=== PATIENT | female | born 1950 | race Caucasian/White ===

== ENCOUNTER 2016-11-04 21:16 | Emergency (ER) | payer MEDICARE, OTHER ==
[~2016-11-04] VITALS: Ht 162.6 cm; Wt 66.0 kg
[~2016-11-04 21:16] MED LIST: ALBU8.5H3 INH; AZIT250T94 PO; CHOL100062 PO; FURO-109 PO; LACT10SO5 PO; PANT40TA3 PO; PRED20TA PO; PROP40TA4 PO; RANI300T PO; RIFA550T4 PO; SPIR100T31 PO; URSO300C21 PO
[2016-11-04 21:22] VITALS: Ht 162.6 cm; Wt 66.0 kg
[2016-11-04] MEDS ORDERED: SOD CHLORIDE 0.9% 1,000 ML IV STA (23:51)
[2016-11-05 00:39] LABS: ADD SCAN DIFF NO
[2016-11-05 00:44] LABS: ABNORMAL IP MESSAGE 1; BASOPHILS % 1.2 % (0.0-2.0); EOSINOPHILS # 0.1 10^3/ul (0.0-0.5); EOSINOPHILS % 2.4 % (0.0-7.0); HEMATOCRIT 35.4 % (37.0-47.0); HEMOGLOBIN 9.9 g/dl (12.0-16.0); LYMPHOCYTES # 1.4 10^3/ul (0.8-2.9); LYMPHOCYTES % 42.4 % (15.0-51.0); MEAN CORPUSCULAR HEMOGLOBIN 23.5 pg (29.0-33.0); MEAN CORPUSCULAR VOLUME 84.1 fl (82.0-101.0); MONOCYTE # 0.4 10^3/ul (0.3-0.9); MONOCYTES % 10.6 % (0.0-11.0); NEUTROPHIL # 1.4 10^3/ul (1.6-7.5); NEUTROPHILS % 43.4 % (39.0-77.0); RED BLOOD COUNT 4.21 10^6/ul (4.20-5.40); RED CELL DISTRIBUTION WIDTH 16.4 % (11.5-14.5); WHITE BLOOD COUNT 3.3 10^3/ul (4.8-10.8)
[2016-11-05 01:04] LABS: ALANINE AMINOTRANSFERASE 28 IU/L (13-69); ALBUMIN/GLOBULIN RATIO 0.95; ALKALINE PHOSPHATASE 332 IU/L (42-121); ANION GAP 11 (8-16); ASPARTATE AMINO TRANSFERASE 41 IU/L (15-46); BILIRUBIN,INDIRECT 0.3 mg/dl (0-1.1); BILIRUBIN,TOTAL 0.3 mg/dl (0.2-1.3); BLOOD UREA NITROGEN 29 mg/dl (7-20); CALCIUM 8.8 mg/dl (8.4-10.2); CARBON DIOXIDE 26 mmol/L (21-31); CHLORIDE 104 mmol/L (97-110); CREATININE 1.15 mg/dl (0.44-1.00); GLUCOSE 97 mg/dl (70-220); SODIUM 137 mmol/L (135-144); TOTAL PROTEIN 8.2 g/dl (6.1-8.1)
[2016-11-05 01:08] LABS: PARTIAL THROMBOPLASTIN TIME 28.3 Sec (25.0-35.0); PROTIME 13.2 Sec (12.2-14.2)
[2016-11-05 01:16] LABS: TROPONIN-I < 0.012 ng/ml (0.00-0.12)
--- NOTE | 2016-11-05 02:20 | RADRPT ---
PROCEDURE: CT ABDOMEN/PELVIS WITHOUT CONTRAST CLINICAL INDICATION: 65-year-old female with abdominal pain. TECHNIQUE: The study was performed utilizing a GE GeoVSpeed VCT 64-slice CT scanner. Direct axia l sections were obtained through the abdomen and pelvis without the use of intravenous contrast mate rial. Sagittal and coronal reformations were obtained. One or more of the following dose reduction t echniques were utilized: automated exposure control, adjustment of the mA and/or kV according to pat ient's size or use of iterative reconstruction technique. The images were reviewed on a PACS workst [facility]. CTD/vol = 9.9 mGy; Total Exam DLP = 555.9 mGy-cm. COMPARISON: CT abdomen/pelvis May 06, 2014. FINDINGS: The lung bases are unremarkable. There is no evidence for significant pleural effusion. There is m ild ascites within the upper abdomen surrounding the liver and spleen as well as within the pelvis. The liver has cirrhotic appearance but without focal areas of abnormal density. No intrahepatic nor extrahepatic biliary ductal dilatation is seen. The gallbladder contains small calcified dependent gallstones without significant wall thickening The pancreas is without areas of abnormal attenuation . The spleen is enlarged having a maximal length of 13.4 cm with capsular calcification again noted . The adrenal glands are unremarkable. The right kidney is without abnormal density, calculi or obst ruction. There is a left upper pole renal cortical cyst present measuring 6.0 x 5.4 x 5.2 cm.. No h ydroureteronephrosis nor nephroureterolithiasis is evident. The urinary bladder contains urine. Esop hageal varices are seen. There are small splenic varices. There is mild retained stool within the colon without obstruction. The appendix is visualized and is without abnormal thickening or surroun ding inflammatory reaction. The uterus is atrophic. Shotty mesenteric lymph nodes are present.. The aortoiliac vessels are diffusely calcified but without aneurysmal dilatation. The osseous structure s are intact. IMPRESSION: 1. Mild ascites within the upper abdomen and pelvis. 2. Cirrhotic liver. 3. Cholelithiasis. 4. Mild splenomegaly with peripheral calcification without interval change. 5. Left upper pole renal cyst. 6. Esophageal and splenic varices. 7. Mild retained stool without obstruction. 8. No CT evidence for appendicitis. 9. Vascular calcifications. .John Dupree MD, MD Date Time Electronically viewed and signed by .John Dupree MD, MD on 11/05/2016 02:20 ./
[2016-11-05] MEDS ORDERED: TYL500 PO (05:37)
[2016-11-05] MEDS ORDERED: AZIT500T5 PO (05:37)
[2016-11-05] MEDS ORDERED: [UNRECOGNIZED DRUG - CODE] MM (05:37)
--- NOTE | 2016-11-05 05:47 | ERD ---
ER Documentation Chief Complaint Date/Time DATE: 11/05/16 TIME: 05:38 Chief Complaint blood in stool x 6 hours HPI This 65-year-old female came emergency room for blood in the stool noticed 6 hours ago. States that she has external hemorrhoids but she also has liver problems. She has had bleeding from her hemorrhoids before. She denies any dark stools the blood was red. She denies any nausea or vomiting. She also does states that she has a cough for the last few days. She's not had any fevers or chills. She does not feel lightheaded dizzy or weak. No chest pain. ROS All systems reviewed and are negative except as per history of present illness. Medications Home Meds Active Scripts Acetaminophen* (Tylenol*) 500 Mg Tab, 500 MG PO Q6H Y for PAIN, #14 TAB Prov:SUMA VELASCO DO 11/05/16 Lidocaine Hcl (Lidocaine Hcl) 5 Ml Jel.pf.trice, 5 ML MM BID for PAIN, #120 For hemorrhoid pain Prov:SUMA VELASCO DO 11/05/16 Azithromycin* (Azithromycin*) 500 Mg Tablet, 500 MG PO DAILY, #3 TAB Prov:SUMA VELASCO DO 11/05/16 Prednisone* (Prednisone*) 20 Mg Tab, 40 MG PO DAILY for 4 Days, TAB Prov:VIRA WILOSN PA-C 07/03/16 Albuterol Sulfate* (Proair HFA*) 8.5 Gm Hfa.aer.ad, 2 PUFF INH Q4, #1 INHALER Prov:VIRA WILSON PA-C 07/03/16 Azithromycin* (Zithromax*) 250 Mg Tablet, 250 MG PO .BjPACK DIRECTED, #6 TAB TAKE 500 MG (2 TABS) THE FIRST DAY THEN 250 MG (1 TAB) DAYS 2-5 Prov:VIRA WILSON PA-C 07/03/16 Reported Medications Lactulose* (Lactulose*) 10 Gm/15 Ml Solution, 10 GM PO DAILY Y for CONSTIPATION , ML 01/11/16 Ranitidine Hcl* (Ranitidine Hcl*) 300 Mg Tablet, 300 MG PO HS, TAB 05/24/14 Cholecalciferol* (Vitamin D3*) 1,000 Unit Tablet, 1000 UNIT PO DAILY, TAB 05/24/14 Spironolactone* (Spironolactone*) 100 Mg Tablet, 100 MG PO DAILY, TAB 05/24/14 Ursodiol* (Actigall*) 300 Mg Cap, 300 MG PO TID, CAP 03/30/14 Propranolol Hcl* (Propranolol Hcl*) 40 Mg Tablet, 40 MG PO DAILY, TAB 03/30/14 Rifaximin* (Xifaxan*) 550 Mg Tablet, 550 MG PO BID, TAB 03/03/14 Pantoprazole* (Protonix*) 40 Mg Tablet.dr, 40 MG PO AM 09/01/13 Furosemide* (Lasix*) 40 Mg Tablet, 80 MG PO EVERY 2 DAYS 07/06/13 Allergies Allergies: Coded Allergies: No Known Drug Allergy (Verified Allergy, Unknown, 11/04/16) PMhx/Soc History of Surgery: No () Anesthesia Reaction: No Hx Neurological Disorder: Yes (vertigo) Hx Respiratory Disorders: No Hx Cardiac Disorders: Yes (HTN) Hx Psychiatric Problems: No Hx Miscellaneous Medical Probl: Yes (liver cirrhosis, renal cyst) Hx Alcohol Use: No Hx Substance Use: No Hx Tobacco Use: No Smoking Status: Never smoker Physical Exam Vitals Vital Signs Date Time Temp Pulse Resp B/P Pulse Ox O2 Delivery O2 Flow Rate FiO2 11/05/16 04:00 98.5 58 20 98/52 100 Room Air 11/05/16 02:00 98.0 64 20 105/43 100 Room Air 11/05/16 00:05 98.5 60 20 119/53 100 Room Air 11/04/16 21:22 98.9 67 20 123/57 100 Physical Exam Const: [] Head: Atraumatic Eyes: Normal Conjunctiva ENT: Normal External Ears, Nose and Mouth. Neck: Full range of motion..~ No meningismus. Resp: Clear to auscultation bilaterally Cardio: Regular rate and rhythm, no murmurs Abd: Soft, non tender, non distended. Normal bowel sounds Skin: No petechiae or rashes Back: No midline or flank tenderness Ext: No cyanosis, or edema Neur: Awake and alert Psych: Normal Mood and Affect Result Diagram: 11/05/16 0010 11/05/16 0010 Results 24 hrs Laboratory Tests Test 11/05/16 00:10 White Blood Count 3.310^3/ul Red Blood Count 4.2110^6/ul Hemoglobin 9.9g/dl Hematocrit 35.4% Mean Corpuscular Volume 84.1fl Mean Corpuscular Hemoglobin 23.5pg Mean Corpuscular Hemoglobin Concent 28.0g/dl Red Cell Distribution Width 16.4% Platelet Count 10^3/UL Mean Platelet Volume fl Neutrophils % 43.4% Lymphocytes % 42.4% Monocytes % 10.6% Eosinophils % 2.4% Basophils % 1.2% Nucleated Red Blood Cells % 0.0/100WBC Neutrophils # 1.410^3/ul Lymphocytes # 1.410^3/ul Monocytes # 0.410^3/ul Eosinophils # 0.110^3/ul Basophils # 0.010^3/ul Nucleated Red Blood Cells # 0.010^3/ul Prothrombin Time 13.2Sec Prothrombin Time Ratio 1.0 INR International Normalized Ratio 1.00 Activated Partial Thromboplast Time 28.3Sec Sodium Level 137mmol/L Potassium Level 4.0mmol/L Chloride Level 104mmol/L Carbon Dioxide Level 26mmol/L Anion Gap 11 Blood Urea Nitrogen 29mg/dl Creatinine 1.15mg/dl Glucose Level 97mg/dl Calcium Level 8.8mg/dl Total Bilirubin 0.3mg/dl Direct Bilirubin 0.00mg/dl Indirect Bilirubin 0.3mg/dl Aspartate Amino Transf (AST/SGOT) 41IU/L Alanine Aminotransferase (ALT/SGPT) 28IU/L Alkaline Phosphatase 332IU/L Troponin I < 0.012ng/ml Total Protein 8.2g/dl Albumin 4.0g/dl Globulin 4.20g/dl Albumin/Globulin Ratio 0.95 Lipase 236U/L Current Medications Medications (Trade) Dose Ordered Sig/Casey Route PRN Reason Start Time Stop Time Status Last Admin Dose Admin Sodium Chloride (NS) 1,000 ml @ 1,000 mls/hr Q1H STAT IV 11/04/16 23:51 11/05/16 00:50 DC 11/05/16 00:06 Procedures/MDM Stable rectal bleed possibly secondary to hemorrhoids. Patient also likely has bronchitis. She was suffering from mild renal insufficiency. She does have pancytopenia and it seems stable. Her hemoglobin of 9.9 is the highest that she has had this year with a previous value of 8.9 and another value of 9.5. She is not have any symptomatically anemia either. Cardiac workup was performed initially also has part of the GI bleed workup. Patient has no signs of cardiac ischemia. She is feeling well the emergency room. Does have some mild renal insufficiency was treated with IV fluid in the emergency room. Said it is not a transfusion. I am going to discharge her with azithromycin for her bronchitis as well as Tylenol and lidocaine jelly for hemorrhoid discomfort. Having her follow-up with her primary care doctor and have spoken with her about instructions to see a GI doctor for colonoscopy and GI workup. She states that she has done this in the past and has a gastric neurologist already that she can see. EKG interpretation: Normal sinus rhythm rate 62, normal axis, no ST-T wave changes concerning for acute ischemia. Normal EKG pvc monitor interpretation: Normal sinus rhythm without arrhythmia CT abdomen and pelvis interpretation: Mild ascites, mild stool retention, no obstruction, no free air, no abnormal fat stranding, no fractures. Departure Diagnosis: Primary Impression: Renal insufficiency Additional Impressions: External hemorrhoid Rectal bleed Bronchitis Condition: Stable Patient Instructions: Bronchitis, Antiobiotic Treatment (Adult), Rectal Bleed, Stable, Renal Insufficiency Additional Instructions: Call your primary care doctor TOMORROW for an appointment during the next 1-2 days.See the doctor sooner or return here if your condition worsens before your appointment time. SUMA VELASCO DO Nov 05, 2016 05:47
[2016-11-05 06:01] VITALS: BP 101/42; PULSE 58; RESP 20; TEMP 97.8
[2016-11-06] MEDS ORDERED: BACTRIM PO (02:40)
[2016-11-06] MEDS ORDERED: CEPH-443 PO (02:40)
== END 2016-11-05 06:02 | disposition home or self-care (01) ==
LOC: E/R 21:16
DX: N28.9 Disorder of kidney and ureter, unspecified (principal); K64.4 Residual hemorrhoidal skin tags; K62.5 Hemorrhage of anus and rectum; J20.9 Acute bronchitis, unspecified; I10 Essential (primary) hypertension
CPT/HCPCS: 36415; 74176; 80053; 83690; 84484; 85025; 85610; 85730; 86850; 86900; 86901; 93005; 99285; J7030

== ENCOUNTER 2016-11-06 01:14 | Emergency (ER) | payer MEDICARE, OTHER ==
[~2016-11-06] VITALS: Ht 165.1 cm; Wt 67.0 kg
[~2016-11-06 01:14] MED LIST changes: +AZIT500T5 PO; +TYL500 PO; +[UNRECOGNIZED DRUG - CODE] MM
[2016-11-06 01:21] VITALS: Ht 165.1 cm; Wt 67.0 kg
[2016-11-06] MEDS ORDERED: CEPH-443 PO (02:40)
[2016-11-06] MEDS ORDERED: BACTRIM PO (02:40)
--- NOTE | 2016-11-06 02:46 | ERD ---
ER Documentation Chief Complaint Date/Time DATE: 11/06/16 TIME: 02:43 Chief Complaint BITTEN BY RAT ON LEFT 3RD FINGER. +TETANUS 3 YEARS AGO. HPI 65-year-old otherwise healthy female presents the emergency department complaining of finger pain following a rat bite at home. Patient states that they set up rat traps in the home. She attempted to shrimp picker the trap with a rat in it and was bitten. Patient states her last tetanus shot was 3 years ago. Patient denies any pain at this time. Patient denies any fever, chills, nausea, vomiting or other trauma. ROS All systems reviewed and are negative except as per history of present illness. Medications Home Meds Active Scripts Trimethoprim-Sulfamethoxazole* (Bactrim*) 400-80 Mg Tab, 1 TAB PO BID, #20 TAB Prov:NOLAN VU PA-C 11/06/16 Cephalexin* (Keflex*) 500 Mg Capsule, 500 MG PO TID for 7 Days, CAP Prov:NOLAN VU PA-C 11/06/16 Acetaminophen* (Tylenol*) 500 Mg Tab, 500 MG PO Q6H Y for PAIN, #14 TAB Prov:SUMA VELASCO DO 11/05/16 Lidocaine Hcl (Lidocaine Hcl) 5 Ml Jel.pf.trice, 5 ML MM BID for PAIN, #120 For hemorrhoid pain Prov:SUMA VELASCO DO 11/05/16 Azithromycin* (Azithromycin*) 500 Mg Tablet, 500 MG PO DAILY, #3 TAB Prov:SUMA VELASCO DO 11/05/16 Prednisone* (Prednisone*) 20 Mg Tab, 40 MG PO DAILY for 4 Days, TAB Prov:VIRA WILSON PA-C 07/03/16 Albuterol Sulfate* (Proair HFA*) 8.5 Gm Hfa.aer.ad, 2 PUFF INH Q4, #1 INHALER Prov:VIRA WILSON PA-C 07/03/16 Azithromycin* (Zithromax*) 250 Mg Tablet, 250 MG PO .ZPACK DIRECTED, #6 TAB TAKE 500 MG (2 TABS) THE FIRST DAY THEN 250 MG (1 TAB) DAYS 2-5 Prov:VIRA WILSON PA-C 07/03/16 Reported Medications Lactulose* (Lactulose*) 10 Gm/15 Ml Solution, 10 GM PO DAILY Y for CONSTIPATION , ML 01/11/16 Ranitidine Hcl* (Ranitidine Hcl*) 300 Mg Tablet, 300 MG PO HS, TAB 05/24/14 Cholecalciferol* (Vitamin D3*) 1,000 Unit Tablet, 1000 UNIT PO DAILY, TAB 05/24/14 Spironolactone* (Spironolactone*) 100 Mg Tablet, 100 MG PO DAILY, TAB 05/24/14 Ursodiol* (Actigall*) 300 Mg Cap, 300 MG PO TID, CAP 03/30/14 Propranolol Hcl* (Propranolol Hcl*) 40 Mg Tablet, 40 MG PO DAILY, TAB 03/30/14 Rifaximin* (Xifaxan*) 550 Mg Tablet, 550 MG PO BID, TAB 03/03/14 Pantoprazole* (Protonix*) 40 Mg Tablet.dr, 40 MG PO AM 09/01/13 Furosemide* (Lasix*) 40 Mg Tablet, 80 MG PO EVERY 2 DAYS 07/06/13 Allergies Allergies: Coded Allergies: No Known Drug Allergy (Verified Allergy, Unknown, 11/04/16) PMhx/Soc History of Surgery: No () Anesthesia Reaction: No Hx Neurological Disorder: Yes (vertigo) Hx Respiratory Disorders: No Hx Cardiac Disorders: Yes (HTN) Hx Psychiatric Problems: No Hx Miscellaneous Medical Probl: Yes (liver cirrhosis, renal cyst) Hx Alcohol Use: No Hx Substance Use: No Hx Tobacco Use: No Smoking Status: Never smoker Physical Exam Vitals Vital Signs Date Time Temp Pulse Resp B/P Pulse Ox O2 Delivery O2 Flow Rate FiO2 11/06/16 01:21 97.5 66 20 118/57 100 Physical Exam Const: Well-developed, well-hydrated, no acute distress Head: Atraumatic Eyes: Normal Conjunctiva ENT: Normal External Ears, Nose and Mouth. Neck: Full range of motion..~ No meningismus. Resp: Clear to auscultation bilaterally Cardio: Regular rate and rhythm, no murmurs Abd: Soft, non tender, non distended. Normal bowel sounds Skin: Puncture wound located on the radial aspect of left third finger. No active bleeding. No swelling or erythema of the joint. Mild tenderness to palpation. No petechiae or rashes Back: No midline or flank tenderness Ext: No cyanosis, or edema Neur: Awake and alert Psych: Normal Mood and Affect Procedures/MDM Otherwise healthy 65-year-old female presents the emergency department following a bite by a rat at home. Patient's wound was thoroughly irrigated with normal saline and Betadine while in the emergency department. Simple dressing applied. Patient denies pain at time of arrival. Patient to begin antibiotics and return in 2 days for wound check. Patient was up-to-date on tetanus prior to arrival. At this time I have low suspicion for severe systemic illness, septic joint, sepsis, or cellulitis. Based on patient's history of present illness and physical examination the decision was made to discharge. The patient was re-evaluated after ED treatment and stabilizing measures, and symptoms have improved. There is no evidence of life threatening injuries or illnesses at this time. On re-examination, patient resting in no distress, stable vital signs, reports feeling better and safe for discharge with outpatient follow up with PMD in 1-2 days. Patient given return precautions. Departure Diagnosis: Primary Impression: Rat bite Encounter type: initial encounter Qualified Code: W53.11XA - Rat bite, initial encounter Additional Impressions: Bite wound Bite by animal Condition: Stable Patient Instructions: Animal Bite (Child) Additional Instructions: Call your primary care doctor TOMORROW for an appointment during the next 1-2 days.See the doctor sooner or return here if your condition worsens before your appointment time. NOLAN VU PA-C Nov 06, 2016 02:46
== END 2016-11-06 03:18 | disposition home or self-care (01) ==
LOC: FTE 01:14
DX: S61.253A Open bite of left middle finger without damage to nail, initial encounter (principal); I10 Essential (primary) hypertension; W53.11XA Bitten by rat, initial encounter; Y92.9 Unspecified place or not applicable
CPT/HCPCS: 99284

== ENCOUNTER 2018-01-14 13:09 | Emergency (ER) | END 2018-01-14 16:15 | disposition home or self-care (01) ==

== ENCOUNTER 2018-02-22 14:08 | Inpatient (IN) | END 2018-02-23 18:05 | disposition home or self-care (01) | DRG 378 ==

== ENCOUNTER 2018-09-24 20:05 | Emergency (ER) | payer MEDICARE, OTHER ==
[~2018-09-24] VITALS: Ht 162.6 cm; Wt 68.1 kg
[~2018-09-24 20:05] MED LIST changes: +ALBU18HF INHALATION; -ALBU8.5H3 INH; -AZIT250T94 PO; -AZIT500T5 PO; +BENZ-6 PO; -CHOL100062 PO; +CHOL200073 PO; -FURO-109 PO; -LACT10SO5 PO; -PANT40TA3 PO; +PANT40TA4 PO; +PROP10TA6 PO; -PROP40TA4 PO; -RANI300T PO; -RIFA550T4 PO; -SPIR100T31 PO; +SPIR100T4 PO; -TYL500 PO; -URSO300C21 PO; +URSO300C3 PO; -[UNRECOGNIZED DRUG - CODE] MM
[2018-09-24 20:51] VITALS: Ht 162.6 cm; Wt 68.1 kg
[2018-09-24] MEDS: LIDOCAINE/MYLANTA 40 ML BTL PO STA ×2 (22:16→23:44)
[2018-09-24] MEDS: morphine 4 MG/ML VIAL IV STA ×2 (22:16→23:44)
[2018-09-24] MEDS ORDERED: PROP40TA4 PO (22:55)
[2018-09-24] MEDS ORDERED: LACT-9 PO (22:55)
[2018-09-24] MEDS ORDERED: SPIR100T4 PO (22:56)
[2018-09-24] MEDS ORDERED: FURO20TA3 PO (23:00)
[2018-09-24] MEDS ORDERED: SUCR1TAB56 PO (23:44)
[2018-09-24] MEDS ORDERED: PANT40TA3 PO (23:58)
--- NOTE | 2018-09-24 23:58 | ERD ---
ER Documentation Chief Complaint Chief Complaint c/o pain from neck down to abdominal area, also c/o swelling both legs HPI 67-year-old female with a past medical history of hypertension, history of idiopathic cirrhosis, hemorrhoids, gastric ulcers,GERD, grade 1 varices, status post endoscopy February 2018 presenting with epigastric pain for the past 5 days. She states that when she eats she feels severe pain going from the lower chest into her epigastric area. The pain is worsened with eating but improves when she is not eating or drinking anything. Currently she is denying any pain at this time. No associated nausea, vomiting, diarrhea, constipation, melena or hematochezia. She feels like her abdomen is also a little more swollen than usual as are her legs. She is taking all of her medications as prescribed which includes Protonix once daily. Denies any fevers or chills. Patient also states that when she goes up a flight of stairs, she has been feeling increasingly short of breath for a few weeks. However she does not have chest pain with this or any other kind of exertion. ROS All systems reviewed and are negative except as per history of present illness. Medications Home Meds Active Scripts Pantoprazole* (Protonix*) 40 Mg Tablet., 40 MG PO BID, #60 TAB Prov:LIANNE WOODALL MD 09/24/18 Sucralfate* (Carafate*) 1 Gm Tab, 1 GM PO QID for 30 Days, TAB take prior to eating Prov:LIANNE WOODALL MD 09/24/18 Albuterol Sulfate* (Ventolin HFA*) 18 Gm Hfa.aer.ad, 2 PUFF INHALATION Q4H, #1 INHALER Prov:JULIANA SMITH PA-C 08/21/18 Benzonatate* (Tessalon Perle*) 100 Mg Capsule, 100 MG PO Q8H PRN for COUGH, #20 CAP Prov:JULIANA SMITH PA-C 08/21/18 Prednisone* (Prednisone*) 20 Mg Tab, 40 MG PO DAILY for 4 Days, TAB Prov:JULIANA SMITH PA-C 08/21/18 Pantoprazole* (Pantoprazole*) 40 Mg Tablet., 40 MG PO BID for 60 Days, TAB Prov:DARIN TANNER MD 02/23/18 Reported Medications Furosemide* (Furosemide*) 20 Mg Tablet, 20 MG PO DAILY for 30 Days, #30 09/24/18 Spironolactone* (Spironolactone*) 100 Mg Tablet, 100 MG PO DAILY, TAB 09/24/18 Lactose-Free Food (ENSURE LIQUID) 237 Ml Liquid, 237 ML PO PRN for NO APPETITE 09/24/18 Propranolol Hcl* (Propranolol Hcl*) 40 Mg Tablet, 40 MG PO DAILY, TAB 09/24/18 Cholecalciferol (Vitamin D3) (VITAMIN D-3) 2,000 Unit Capsule, 2000 UNIT PO DAILY, CAP 02/20/18 Ursodiol* (Ursodiol*) 300 Mg Capsule, 300 MG PO TID, CAP 02/20/18 Discontinued Reported Medications Spironolactone* (Spironolactone*) 100 Mg Tablet, 100 MG PO DAILY, TAB 02/20/18 Discontinued Scripts Propranolol Hcl* (Propranolol Hcl*) 10 Mg Tablet, 10 MG PO TID for 28 Days, TAB Prov:DARIN TANNER MD 02/23/18 Allergies Allergies: Coded Allergies: No Known Drug Allergy (Unverified Allergy, Unknown, 09/24/18) PMhx/Soc History of Surgery: Yes ( x1) Anesthesia Reaction: No Hx Neurological Disorder: Yes (vertigo) Hx Respiratory Disorders: No Hx Cardiac Disorders: Yes (HTN) Hx Psychiatric Problems: No Hx Miscellaneous Medical Probl: Yes (liver cirrhosis, renal cyst) Hx Alcohol Use: No Hx Substance Use: No Hx Tobacco Use: No Smoking Status: Never smoker FmHx Family History: diabetes Physical Exam Vitals Vital Signs Date Temp Pulse Resp B/P (MAP) Pulse Ox O2 O2 Flow FiO2 Time Delivery Rate 09/25/18 69 18 100/38 99 Room Air 00:39 (58) 09/24/18 98.2 74 18 124/40 100 Room Air 21:35 (68) 09/24/18 98.2 80 18 107/56 98 20:51 (73) Physical Exam Const: No acute distress, nontoxic Head: Atraumatic Eyes: Normal Conjunctiva ENT: Normal External Ears, Nose and Mouth. Neck: Full range of motion. No meningismus. Resp: Clear to auscultation bilaterally Cardio: Regular rate and rhythm, no murmurs. 2+ distal pulses in all 4 extremities Abd: Soft, non tender, mildly distended. Normal bowel sounds. No pulsatile mass Skin: No petechiae or rashes Back: No midline or flank tenderness Ext: No cyanosis, or edema Neur: Awake and alert Psych: Normal Mood and Affect Result Diagram: 09/24/18214409/24/182144 Results 24 hrs Laboratory Tests Test 09/24/18 21:45 09/25/18 00:02 White Blood Count 4.9 10^3/ul Red Blood Count 3.10 10^6/ul Hemoglobin 8.6 g/dl Hematocrit 29.1 % Mean Corpuscular Volume 93.9 fl Mean Corpuscular Hemoglobin 27.7 pg Mean Corpuscular Hemoglobin Concent 29.6 g/dl Red Cell Distribution Width 15.1 % Platelet Count 71 10^3/UL Mean Platelet Volume 14.4 fl Immature Granulocytes % 0.400 % Neutrophils % 49.9 % Lymphocytes % 32.8 % Monocytes % 11.8 % Eosinophils % 3.7 % Basophils % 1.4 % Nucleated Red Blood Cells % 0.0 /100WBC Immature Granulocytes # 0.020 10^3/ul Neutrophils # 2.5 10^3/ul Lymphocytes # 1.6 10^3/ul Monocytes # 0.6 10^3/ul Eosinophils # 0.2 10^3/ul Basophils # 0.1 10^3/ul Nucleated Red Blood Cells # 0.0 10^3/ul Prothrombin Time 13.3 Sec Prothrombin Time Ratio 1.0 INR International Normalized Ratio 1.00 Activated Partial Thromboplast Time 29.3 Sec Sodium Level 139 mmol/L Potassium Level 3.9 mmol/L Chloride Level 104 mmol/L Carbon Dioxide Level 26 mmol/L Anion Gap 9 Blood Urea Nitrogen 50 mg/dl Creatinine 1.12 mg/dl Est Glomerular Filtrat Rate mL/min 49 mL/min Glucose Level 177 mg/dl Calcium Level 8.2 mg/dl Total Bilirubin 0.4 mg/dl Direct Bilirubin 0.00 mg/dl Indirect Bilirubin 0.4 mg/dl Aspartate Amino Transf (AST/SGOT) 46 IU/L Alanine Aminotransferase (ALT/SGPT) 22 IU/L Alkaline Phosphatase 273 IU/L Troponin I < 0.012 ng/ml Total Protein 6.3 g/dl Albumin 3.2 g/dl Globulin 3.10 g/dl Albumin/Globulin Ratio 1.03 Lipase 288 U/L Bedside Urine pH (LAB) 5.5 Bedside Urine Protein (LAB) Negative Bedside Urine Glucose (UA) Negative Bedside Urine Ketones (LAB) Trace Bedside Urine Blood Negative Bedside Urine Nitrite (LAB) Negative Bedside Urine Leukocyte Esterase (L Negative Current Medications Medications Dose Sig/Casey Start Time Status Last (Trade) Ordered Route PRN Stop Time Admin Dose Reason Admin Morphine 4 mg ONCE STAT 09/24/18 DC Sulfate IV 22:16 (morphine) 09/24/18 22:18 40 ml ONCE STAT 09/24/18 DC Miscellaneous PO 22:16 Medication 09/24/18 22:18 (Gi Cocktail (2)) Procedures/MDM EMERGENT LABS AND DIAGNOSTIC STUDIES: Lab Results above were reviewed and interpreted by me. CBC: Evidence of anemia, chronic but slightly worsened compared to prior. Thrombocytopenia, chronic. No evidence of infection CMP: Elevated BUN and creatinine, consistent with chronic renal insufficiency, unchanged from baseline. No evidence of electrolyte abnormality, hypoglycemia, liver failure, or biliary obstruction Lipase: no evidence of pancreatitis Troponin within normal limits, not indicative of cardiac ischemia UA: Trace ketones. No evidence of infection Collection no evidence of coagulopathy 12-lead EKG was interpreted by Jessica Woodall MD: Normal Sinus Rhythm Normal axis Normal intervals No acute ST or T wave changes suggestive of acute ischemia or STEMI. Radiology Results as interpreted by Radiology below were reviewed by SFaustino Woodall MD: Chest x-ray shows no acute abnormalities Initial Nursing notes reviewed. Previous Medical Records requested via the Electronic Health Record. EMERGENCY DEPARTMENT COURSE / MEDICAL DECISION MAKING: Patient is presenting with lower chest and epigastric pain, likely secondary to her gastric ulcers. Lower suspicion for bowel obstruction, bowel ischemia, esophageal rupture, ACS, aortic dissection, pulmonary embolism, pneumonia, or other cause of acute surgical abdomen. Vitals are stable. She was treated with a GI cocktail with improvement of her symptoms. Her workup did not show any significant abnormalities. She does have chronic anemia that is slightly worse than previous, which may be contributing to some of her shortness of breath with climbing stairs. However I feel the patient is stable for discharge with continued outpatient follow-up and further workup outpatient. I did recommend changing her Protonix to twice daily and added sucralfate to her regimen. 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 Return precautions were discussed. Patient's blood pressure was elevated (>120/80) but appears stable without evidence of hypertensive emergency or urgency. The patient was counseled about the risks of hypertension and urged to pursue outpatient monitoring and therapy within a week with their primary care physician. Departure Diagnosis: Primary Impression: Abdominal pain Abdominal location: epigastric Qualified Codes: R10.13 - Epigastric pain Additional Impression: Anemia Anemia type: unspecified type Qualified Codes: D64.9 - Anemia, unspecified Condition: Stable Patient Instructions: Abdominal Pain, Anemia Additional Instructions: Llame a acosta mdico de atencin primaria maana para carlin visita dentro de los prximos chamberlain. Regrese por cualquier empeoramiento de los sntomas. LIANNE WOODALL MD Sep 24, 2018 23:57
[2018-09-25 00:39] VITALS: BP 100/38; PULSE 69; RESP 18
== END 2018-09-25 00:50 | disposition home or self-care (01) ==
LOC: E/R 20:05
DX: R10.13 Epigastric pain (principal); D64.9 Anemia, unspecified
CPT/HCPCS: 36415; 71045; 80053; 81003; 83690; 84484; 85025; 85610; 85730; 93005; 99285; J2270